=== PATIENT | male | born 1985 | race Caucasian/White ===

== ENCOUNTER 2016-08-01 17:27 | Emergency (ER) | payer OTHER ==
[~2016-08-01] VITALS: Ht 180.3 cm; Wt 101.5 kg
[2016-08-01 17:32] VITALS: TEMP 37; Ht 180.3 cm; Wt 101.5 kg
[2016-08-01] MEDS ORDERED: IBUP-1050 PO (17:41)
[2016-08-01] MEDS ORDERED: AMOXICILLIN 250 MG CAP PO STA (17:53)
[2016-08-01] MEDS ORDERED: OXYCODONE/ACETAMINOPHEN 5-325 TAB PO ONE (18:00)
[2016-08-01] MEDS ORDERED: PERCOCET HOME PACK PO ONE (18:00)
[2016-08-01] MEDS ORDERED: PRED20TA PO (18:09)
[2016-08-01] MEDS ORDERED: AMOX500C3 PO (18:09)
[2016-08-01] MEDS ORDERED: OXYC-57 PO (18:09)
--- NOTE | 2016-08-01 18:11 | EMERGENCY ROOM VISIT NOTE ---
History Report prepared by Jose: Luis Alberto Sawant Under the Supervision of: Dr. Alfa Ng D.O. First contact with patient: 17:48 Chief Complaint: SORETHROAT Stated Complaint: SORETHROAT,COUGH,CONGESTION History of Present Illness The patient is a 31 year old male who presents to the Emergency Room with complaints of a worsening sorethroat for the past six days. The patient additionally is complaining of congestion, fever, chills, and body aches. He states that the fever and chills have somewhat resolved. He additionally states that he has a dry cough that comes and goes and is sometimes phlegmy. The patient's states that she has had similar symptoms recently and she was given antibiotics. Source of History: patient Onset: six days ago Position: throat Timing: worsening Associated Symptoms: + chills, + cough, + fevers Review of Systems See HPI for pertinent positives & negatives. A total of 10 systems reviewed and were otherwise negative. Past Medical & Surgical Surgical Problems: (1) H/O rotator cuff surgery Social History Smoking Status: Never Smoker Marital Status: Housing Status: lives with family Occupation Status: employed Current/Historical Medications Scheduled Amoxicillin (Amoxil), 500 MG PO TID Ibuprofen (Advil), 200-600 MG PO Q4H Prednisone (Prednisone), 3 TAB PO DAILY Scheduled PRN Oxycodone/Acetaminophen 5MG/325MG (Percocet 5MG/325MG), 1 TAB PO Q6H PRN for Pain Allergies Coded Allergies: No Known Allergies (Unverified , 08/01/16) Physical Exam Vital Signs Date Time Temp Pulse Resp B/P Pulse Ox O2 Delivery O2 Flow Rate FiO2 08/01/16 17:32 37.0 89 20 159/104 98 Room Air Physical Exam CONSTITUTIONAL/VITAL SIGNS: Reviewed / noted above. GENERAL: Non-toxic in appearance. INTEGUMENTARY: Warm, dry, and [place]. HEAD: Normocephalic. EYES: without scleral icterus or trauma. ENT/OROPHARYNX: Multiple erythematous vesicles noted in the posterior oropharynx. Similar to the patient's exam of her throat. LYMPHADENOPATHY/NECK: Is supple without lymphadenopathy or meningismus. RESPIRATORY: Lungs clear and equal. CARDIOVASCULAR: Regular rate and rhythm. GI/ABDOMEN: Soft and nontender. No organomegaly or pulsatile mass. No rebound or guarding. Normal bowel sounds. EXTREMITIES: Warm and well perfused. BACK: No CVA tenderness. NEUROLOGICAL: Intact without focal deficits. PSYCHIATRIC: normal affect. MUSCULOSKELETAL: Normally developed with good muscle tone. Medical Decision & Procedures Medications Administered Medications (Trade) Dose Ordered Sig/Dede Route Start Time Stop Time Status Last Admin Dose Admin Oxycodone/ Acetaminophen (Percocet 5/ 325MG Home Pack) 1 homepack UD ONCE PO 08/01/16 18:00 08/01/16 18:01 DC 08/01/16 18:13 1 HOMEPACK Oxycodone/ Acetaminophen (Percocet 5-325mg Tab) 1 tab NOW ONCE PO 08/01/16 18:00 08/01/16 18:01 DC 08/01/16 18:13 1 TAB Amoxicillin (Amoxil Cap) 500 mg NOW STAT PO 08/01/16 17:53 08/01/16 17:58 DC 08/01/16 18:13 500 MG Prednisone (PredniSONE TAB) 60 mg NOW STAT PO 08/01/16 17:53 08/01/16 17:58 DC 08/01/16 18:12 60 MG ED Course 1748: Previous medical records were reviewed. The patient was evaluated in room C1. A complete history and physical examination was performed. 1753: Prednisone 60mg PO, Amoxil Cap 500mg PO 1800: Percocet 5-325mg 1 Tab PO, Percocet 5/325mg 1 Home Pack PO 1810: On reevaluation, the patient is feeling well. I discussed the results and findings with the patient. He verbalized agreement of the treatment plan. He was discharged home. Medical Decision Differential diagnoses include: Bacterial vs viral pharyngitis, abscess. This is a 31-year-old male who presents to the ED with a chief complaint of a sore throat. The patient states that he has had some flulike symptoms over the past 5 days. Over the past couple of days he has developed a really bad sore throat. His has similar symptoms. On exam, the patient has erythematous vesicles in the posterior oropharynx. There is no exudate. His had similar symptoms and was started on antibiotics and steroids a couple of days ago. Her strep test was negative. I did visualize her posterior oropharynx and it appears similar to her husbands. The patient does not have any anterior lymphadenopathy. No meningismus. He reports an occasional cough. The patient was given Percocet by mouth for discomfort. He was also provided prednisone and amoxicillin. He is felt to be stable for discharge. Prescription for amoxicillin, prednisone and Percocet provided. Impression Primary Impression: Pharyngitis Scribe Attestation The scribe's documentation has been prepared under my direction and personally reviewed by me in its entirety. I confirm that the note above accurately reflects all work, treatment, procedures, and medical decision making performed by me. Departure Information Dispostion Home / Self-Care Prescriptions Oxycodone/Acetaminophen 5MG/325MG (PERCOCET 5MG/325MG) Tab 1 TAB PO Q6H Y for Pain, #10 TAB Prov: Alfa Ng D.O. 08/01/16 Prednisone (Prednisone) 20 Mg Tab 3 TAB PO DAILY for 4 Days, #12 TAB Prov: Alfa Ng D.O. 08/01/16 Amoxicillin (AMOXIL) 500 Mg Cap 500 MG PO TID, #21 CAP Prov: Alfa Ng D.O. 08/01/16 Referrals No Doctor, Assigned (PCP) Forms HOME CARE DOCUMENTATION FORM, IMPORTANT VISIT INFORMATION Patient Instructions My [facility] Additional Instructions Amoxicillin as prescribed. Prednisone as prescribed. Percocet as prescribed. No driving within 6 hours of use. Do not take additional Tylenol while taking Percocet.
[2016-08-01 18:23] VITALS: BP 141/88; PULSE 76; O2SAT 98
== END 2016-08-01 18:24 | disposition home or self-care (01) ==
LOC: C.EDB 17:28 → C.EDC 18:24
DX: J02.9 Acute pharyngitis, unspecified (principal); R05 Cough; R50.9 Fever, unspecified